=== PATIENT | female | born 1985 | race Caucasian/White ===

== ENCOUNTER → 2016-07-09 | Outpatient (CLI) | payer OTHER ==
[~2016-07-09] MED LIST: FERROUS SULFAT325 M2 PO
== END ==
LOC: GENOP 09:31
DX: O36.8130 Decreased fetal movements, third trimester, not applicable or unspecified (principal); Z3A.35 35 weeks gestation of pregnancy
CPT/HCPCS: 59025

== ENCOUNTER 2016-07-25 20:18 | Outpatient (CLI) | payer OTHER | END 2016-07-25 22:29 | disposition home or self-care (01) | LOC: GENOP 20:18 | DX: O42.92 Full-term premature rupture of membranes, unspecified as to length of time between rupture and onset of labor (principal); Z3A.35 35 weeks gestation of pregnancy | CPT/HCPCS: 81001; 82962; 83518; G0463 ==

== ENCOUNTER 2016-07-31 16:21 | Inpatient (IN) | payer OTHER ==
[~2016-07-31] VITALS: Ht 167.6 cm; Wt 74.8 kg
[2016-07-31 17:09] LABS: HEMOGLOBIN 8.7 gm/dl (12.3-15.3); RED BLOOD COUNT 3.45 M/UL (4.00-5.10); WHITE BLOOD COUNT 9.5 K/UL (4.5-11.0)
[2016-08-02] MEDS ORDERED: FERROUS SULFAT325 M2 PO (17:47)
== END 2016-08-02 17:48 | disposition home or self-care (01) | DRG 775 ==
LOC: GENOP 16:21 → OB 16:37
PROVIDERS: ADMIT Obstetrics & Gynecology
PROC: 0U7C7ZZ Dilation of Cervix, Via Natural or Artificial Opening (ICD-10-PCS; 2016-07-31)
PROC: 10E0XZZ Delivery of Products of Conception, External Approach (ICD-10-PCS; principal; 2016-08-01)
PROC: 10907ZC Drainage of Amniotic Fluid, Therapeutic from Products of Conception, Via Natural or Artificial Opening (ICD-10-PCS; 2016-08-01)
PROC: 3E033VJ Introduction of Other Hormone into Peripheral Vein, Percutaneous Approach (ICD-10-PCS; 2016-08-01)
DX: O24.425 Gestational diabetes mellitus in childbirth, controlled by oral hypoglycemic drugs (principal); O69.81X0 Labor and delivery complicated by cord around neck, without compression, not applicable or unspecified; O70.0 First degree perineal laceration during delivery; Z37.0 Single live birth; Z3A.38 38 weeks gestation of pregnancy; Z79.84 Long term (current) use of oral hypoglycemic drugs; Z79.899 Other long term (current) drug therapy
CPT/HCPCS: 36415; 36600; 51702; 81001; 82800; 82962; 85014; 85018; 85025; 90715; J2590; J2795; J3010; J7030